=== PATIENT | female | born 1975 | race Caucasian/White ===

== ENCOUNTER 2017-01-06 00:09 | Emergency (ER) | payer SELFPAY ==
--- NOTE | 2017-01-06 02:34 | ED CLINICAL REPORT ---
Clinical Report - Physicians/Mid Levels [facility] [address] [place] [address] 01/06/2017 0:09 Patient: ELIZABETH MCKEON *This is a preliminary document and is subject to change Time Seen: 00:23; initial patient contact. PAST HISTORY Epicondylitis. Peritonsillar Abscess. Lymphadenitis. Paresthesia. Ganglion Cyst. Ovarian Cyst. Periodontitis. Dental Abscess. SURGERIES: Adenoidectomy. Hysterectomy. SOCIAL HISTORY Current every day smoker. No alcohol use or drug use. [address].
--- NOTE | 2017-01-06 02:34 | ED NURSING NOTES ---
Clinical Report - Nurses [facility] [address] [place] [address] 01/06/2017 0:09 Patient: ELIZABETH MCKEON TRIAGE Triage time 00:21 Jan 06 2017. Acuity: LEVEL 4. Chief Complaint: LEFT LOWER TOOTHACHE and SWELLING OF JAW / FACE. SEPSIS SCREEN: Sepsis Screen: negative. Negative (no infection suspected/documented). MACKENZIE COMA SCORE: [place] Coma Scale: 15- eyes open spontaneously (4); best verbal response- oriented x 4 (5); best motor response- obeys commands (6). --00:25 Shilpi Lopez 00:21 01/06/17. BP: 114/74. HR: 90. RR: 20. O2 saturation: 98% on room air. Temp: 98 F (oral). Pain level now: 08/21. --00:25 Shilpi Lopez. Weight: 58 kg stated. Height/Length: 61 inches Per Patient. BMI: 24.2. --00:22 Shilpi Lopez. Medications None. --00:24 Shilpi Lopez. Allergies Codeine. --00:24 Shilpi Lopez. Medication/allergy information source: the patient. --00:25 Shilpi Lopez. History Arrived by private vehicle. Historian: patient. Accompanied by family. Primary physician ([facility]). This started yesterday. ( Patient reports a broken tooth that has been hurting since yesterday. She states she was here before and had an issue with her artery in her neck and she states she believes the two are related. She reports some swelling of the face. She reports blurred vision as well. She states she has been seen here and [place] and nothing has been done for her.). She has no dental appointment scheduled. PAST MEDICAL HX: Dental caries. Immunizations: up-to-date. Last normal menstrual period- 22 years ago. SOCIAL HX: Light tobacco smoker (cigarette)- less than 1/2 a pack per day. No alcohol use or drug use. No infectious disease exposure. ABUSE ASSESSMENT: No report of abuse. FALL RISK ASSESSMENT: Fall risk assessment completed. No fall risk identified. NUTRITIONAL RISK ASSESSMENT: The nutritional risk assessment revealed no deficiencies. FUNCTIONAL ASSESSMENT: Functional assessment: no impairments noted. LEARNING NEEDS ASSESSMENT: The learning needs assessment revealed no barriers. SKIN INTEGRITY ASSESSMENT: Skin integrity risk assessment completed. No skin integrity risk identified. --00:25 Shilpi Lopez. PROBLEMS: Epicondylitis. Peritonsillar Abscess. Lymphadenitis. Paresthesia. Ganglion Cyst. Ovarian Cyst. Periodontitis. Dental Abscess. --00:25 Shilpi Lopez. ADDITIONAL SURGERIES: Adenoidectomy. Hysterectomy. --00: Shilpi Lopez. Interventions ID band on patient. To treatment room. --00: Shilpi Lopez. PHYSICAL ASSESSMENT Ambulatory to room. GENERAL / NEURO / PSYCH: Alert. Oriented X 4. Appears in pain. HEENT: Extensive dental decay. RESPIRATORY: Respirations not labored. SKIN: Skin is warm and dry. --00: Shilpi Lopez. NURSING PROGRESS NOTES 00:01/06/17. Cold pack applied. Reassurance given to the patient. Two patient identifiers checked. Call light placed in reach. Side rails up x 1. Bed placed in lowest position. Brakes of bed on. Patient ready for evaluation- chart flagged. --00: Shilpi Lopez 01:45 01/06/2017 Site #1 started via IV in the right antecubital space with an 20g angiocath, with aseptic technique and good blood return; one attempt. Blood drawn: rainbow set. Labeled in the presence of the patient and held. Saline lock flushed with 5 mL saline. --01:54 Indira De Jesus RTristonNTriston 01:50 01/06/2017 SOLU-MEDROL (MethylPREDNISolone Sodium Succ) IVP 125 mg given over 1 minute(s) via site #1. Allergies verified and confirmed 5 rights. IV patency established. IV site checked: no pain, redness, or swelling. IV flushed thoroughly pre- and post-medication administration. IVP given by RN. --01:55 Indira De Jesus R.N. The patient is resting quietly. --01:58 Shilpi Lopez 01:58 01/06/17. BP: 116/69. HR: 73. RR: 20. O2 saturation: 99% on room air. Pain level now: 08/21. --01:58 Shilpi Lopez ( Patient asked for urine sample and informed of plan of care. Patient states she does not want to wait for hours while the doctor takes care of other patients. Patient advised to stay for treatment and that provider would be back in the room as soon as he was able. Patient declined to stay. Patient asked for her Ultrasound and lab reports from her visit for her "swollen artery". Patient provided with Ultrasound reports.). --02:32 Shilpi Lopez. DISPOSITION / DISCHARGE The patient left the Emergency Department without completion of treatment; patient was accompanied by a helicopter crew chief. The patient appears to be alert, oriented x4, coherent and in no acute distress. The patient notified the ED staff prior to leaving the department and stated is leaving the ED due to personal reasons and the long waiting time. Notified the ED physician of patient departure. Prior to leaving the ED, she was advised to stay for completion of treatment and return if needed. She was informed of the risks of leaving and verbalized understanding of these risks. Patient signed form prior to leaving. She left the Emergency Department ambulatory and via private vehicle. --02:33 Shilpi Lopez 02:32 01/06/17. BP: 127/77. HR: 72. RR: 18. O2 saturation: 95% on room air. Temp: 97.7 F (oral). Pain level now: 08/21. --02:33 Shilpi Lopez FALL RISK ASSESSMENT: Fall risk assessment completed. No fall risk identified. --02:33 Shilpi Lopez 02:28 01/06/2017 Site #1 removed upon discharge. Catheter intact. Bandaid applied. --02:33 Shilpi Lopez. Locked/Released at 01/07/2017 23:37 by Shilpi Lopez,
--- NOTE | 2017-01-06 02:34 | ED CLINICAL REPORT ---
Clinical Report - Physicians/Mid Levels [facility] [address] [place] [place] [address] 01/06/2017 0:09 Patient: ELIZABETH MCKEON *This is a preliminary document and is subject to change Time Seen: 00:23; initial patient contact. PAST HISTORY Epicondylitis. Peritonsillar Abscess. Lymphadenitis. Paresthesia. Ganglion Cyst. Ovarian Cyst. Periodontitis. Dental Abscess. SURGERIES: Adenoidectomy. Hysterectomy. SOCIAL HISTORY Current every day smoker. No alcohol use or drug use. [address]
--- NOTE | 2017-01-06 02:34 | ED NURSING NOTES ---
Clinical Report - Nurses [facility] [address] [place] [address] 01/06/2017 0:09 Patient: ELIZABETH MCKEON TRIAGE Triage time 00:21 Jan 06 2017. Acuity: LEVEL 4. Chief Complaint: LEFT LOWER TOOTHACHE and SWELLING OF JAW / FACE. SEPSIS SCREEN: Sepsis Screen: negative. Negative (no infection suspected/documented). MACKENZIE COMA SCORE: [place] Coma Scale: 15- eyes open spontaneously (4); best verbal response- oriented x 4 (5); best motor response- obeys commands (6). --00:25 Shilpi Lopez 00:21 01/06/17. BP: 114/74. HR: 90. RR: 20. O2 saturation: 98% on room air. Temp: 98 F (oral). Pain level now: 08/21. --00:25 Shilpi Lopez. Weight: 58 kg stated. Height/Length: 61 inches Per Patient. BMI: 24.2. --00:22 Shilpi Lopez. Medications None. --00:24 Shilpi Lopez. Allergies Codeine. --00:24 Shilpi Lopez. Medication/allergy information source: the patient. --00:25 Shilpi Lopez. History Arrived by private vehicle. Historian: patient. Accompanied by family. Primary physician ([facility]). This started yesterday. ( Patient reports a broken tooth that has been hurting since yesterday. She states she was here before and had an issue with her artery in her neck and she states she believes the two are related. She reports some swelling of the face. She reports blurred vision as well. She states she has been seen here and [place] and nothing has been done for her.). She has no dental appointment scheduled. PAST MEDICAL HX: Dental caries. Immunizations: up-to-date. Last normal menstrual period- 22 years ago. SOCIAL HX: Light tobacco smoker (cigarette)- less than 1/2 a pack per day. No alcohol use or drug use. No infectious disease exposure. ABUSE ASSESSMENT: No report of abuse. FALL RISK ASSESSMENT: Fall risk assessment completed. No fall risk identified. NUTRITIONAL RISK ASSESSMENT: The nutritional risk assessment revealed no deficiencies. FUNCTIONAL ASSESSMENT: Functional assessment: no impairments noted. LEARNING NEEDS ASSESSMENT: The learning needs assessment revealed no barriers. SKIN INTEGRITY ASSESSMENT: Skin integrity risk assessment completed. No skin integrity risk identified. --00:25 Shilpi Lopez. PROBLEMS: Epicondylitis. Peritonsillar Abscess. Lymphadenitis. Paresthesia. Ganglion Cyst. Ovarian Cyst. Periodontitis. Dental Abscess. --00:25 Shilpi Lopez. ADDITIONAL SURGERIES: Adenoidectomy. Hysterectomy. --00: Shilpi Lopez. Interventions ID band on patient. To treatment room. --00: Shilpi Lopez. PHYSICAL ASSESSMENT Ambulatory to room. GENERAL / NEURO / PSYCH: Alert. Oriented X 4. Appears in pain. HEENT: Extensive dental decay. RESPIRATORY: Respirations not labored. SKIN: Skin is warm and dry. --00: Shilpi Lopez. NURSING PROGRESS NOTES 00:01/06/17. Cold pack applied. Reassurance given to the patient. Two patient identifiers checked. Call light placed in reach. Side rails up x 1. Bed placed in lowest position. Brakes of bed on. Patient ready for evaluation- chart flagged. --00: Shilpi Lopez 01:45 01/06/2017 Site #1 started via IV in the right antecubital space with an 20g angiocath, with aseptic technique and good blood return; one attempt. Blood drawn: rainbow set. Labeled in the presence of the patient and held. Saline lock flushed with 5 mL saline. --01:54 Indira De Jesus RTristonNTriston 01:50 01/06/2017 SOLU-MEDROL (MethylPREDNISolone Sodium Succ) IVP 125 mg given over 1 minute(s) via site #1. Allergies verified and confirmed 5 rights. IV patency established. IV site checked: no pain, redness, or swelling. IV flushed thoroughly pre- and post-medication administration. IVP given by RN. --01:55 Indira De Jesus R.N. The patient is resting quietly. --01:58 Shilpi Lopez 01:58 01/06/17. BP: 116/69. HR: 73. RR: 20. O2 saturation: 99% on room air. Pain level now: 08/21. --01:58 Shilpi Lopez ( Patient asked for urine sample and informed of plan of care. Patient states she does not want to wait for hours while the doctor takes care of other patients. Patient advised to stay for treatment and that provider would be back in the room as soon as he was able. Patient declined to stay. Patient asked for her Ultrasound and lab reports from her visit for her "swollen artery". Patient provided with Ultrasound reports.). --02:32 Shilpi Lopez. DISPOSITION / DISCHARGE The patient left the Emergency Department without completion of treatment; patient was accompanied by a traffic police officer. The patient appears to be alert, oriented x4, coherent and in no acute distress. The patient notified the ED staff prior to leaving the department and stated is leaving the ED due to personal reasons and the long waiting time. Notified the ED physician of patient departure. Prior to leaving the ED, she was advised to stay for completion of treatment and return if needed. She was informed of the risks of leaving and verbalized understanding of these risks. Patient signed form prior to leaving. She left the Emergency Department ambulatory and via private vehicle. --02:33 Shilpi Lopez 02:32 01/06/17. BP: 127/77. HR: 72. RR: 18. O2 saturation: 95% on room air. Temp: 97.7 F (oral). Pain level now: 08/21. --02:33 Shilpi Lopez FALL RISK ASSESSMENT: Fall risk assessment completed. No fall risk identified. --02:33 Shilpi Lopez 02:28 01/06/2017 Site #1 removed upon discharge. Catheter intact. Bandaid applied. --02:33 Shilpi Lopez. Locked/Released at 01/07/2017 23:37 by Shilpi Lopez,
--- NOTE | 2017-01-06 02:34 | ED ORDER SUMMARY ---
..... Patient: ELIZABETH MCKEON OrderSheet [facility] VisitID: [id number] [place] [address] 41y, F Registration Date/Time: 01/06/2017 ORDER SHEET Weight: 58.0 kg (stated) Allergies: Codeine GENERAL ORDERS: CBC w Diff Urgent (02:09 01/06/2017 Amaya Ly) (Ack 2:12 IJurca ER Tech1) (Cancelled: Patient Refusal2:30 HSoule) CMP Urgent (02:09 01/06/2017 Amaya Ly) (Ack 2:12 IJurca ER Tech1) (Cancelled: Patient Refusal2:30 HSoule) Urine Drug Screen Urgent (02:01/06/2017 Amaya Ly) (Ack 2:12 IJurca ER Tech1) (Cancelled: Patient Refusal2:30 HSoule) UA-Culture if indicated Urgent (02:01/06/2017 Amaya Ly) (Ack 2:12 IJurca ER Tech1) (Cancelled: Patient Refusal2:30 HSoule) MEDICATION ORDERS: IV FLUIDS: Solu-MEDROL IV 125 mg (NOW) (01:39 01/06/2017 Amaya Ly) (1:55 EInderbitzen R.N.) IV NS : initial bolus none -, then 1000 mL/hr for X1 (NOW) (02:09 01/06/2017 Amaya Ly) (Ack 2:11 HSoule) (Cancelled: Patient Refusal2:30 HSoule) ORDER SHEET NOTES: This document has not been locked and should not be saved in the medical record.
--- NOTE | 2017-01-06 02:34 | ED ORDER SUMMARY ---
..... Patient: ELIZABETH MCKEON OrderSheet [facility] VisitID: [id number] [place] [address] 41y, F Registration Date/Time: 01/06/2017 ORDER SHEET Weight: 58.0 kg (stated) Allergies: Codeine GENERAL ORDERS: CBC w Diff Urgent (02:09 01/06/2017 Amaya Ly) (Ack 2:12 IJurca ER Tech1) (Cancelled: Patient Refusal2:30 HSoule) CMP Urgent (02:09 01/06/2017 Amaya Ly) (Ack 2:12 IJurca ER Tech1) (Cancelled: Patient Refusal2:30 HSoule) Urine Drug Screen Urgent (02:01/06/2017 Amaya Ly) (Ack 2:12 IJurca ER Tech1) (Cancelled: Patient Refusal2:30 HSoule) UA-Culture if indicated Urgent (02:01/06/2017 Amaya Ly) (Ack 2:12 IJurca ER Tech1) (Cancelled: Patient Refusal2:30 HSoule) MEDICATION ORDERS: IV FLUIDS: Solu-MEDROL IV 125 mg (NOW) (01:39 01/06/2017 Amaya Ly) (1:55 EInderbitzen R.N.) IV NS : initial bolus none -, then 1000 mL/hr for X1 (NOW) (02:09 01/06/2017 Amaya Ly) (Ack 2:11 HSoule) (Cancelled: Patient Refusal2:30 HSoule) ORDER SHEET NOTES: This document has not been locked and should not be saved in the medical record.
--- NOTE | 2017-01-07 23:37 | ED MAR SUMMARY ---
..... Medication Administration Record [facility] [address] [place] [address] Patient: ELIZABETH MCKEON Visit ID: [id number] 41y, F Weight: 58.0 kg Height/Length: 61 in BMI: 24.2 ALLERGIES: Codeine Given 01:50 01/06/2017 Indira De Jesus R.N. Medication Administered: SOLU-MEDROL [IVP] (METHYLPREDNISOLONE SODIUM SUCC), Dose: 125 mg IVP over 1 minute(s), Site: #1 right AC. Medication Ordered: Solu-MEDROL IV 125 mg (NOW).
--- NOTE | 2017-01-07 23:37 | ED MAR SUMMARY ---
..... Medication Administration Record [facility] [address] [place] [address] Patient: ELIZABETH MCKEON Visit ID: [id number] 41y, F Weight: 58.0 kg Height/Length: 61 in BMI: 24.2 ALLERGIES: Codeine Given 01:50 01/06/2017 Indira De Jesus R.N. Medication Administered: SOLU-MEDROL [IVP] (METHYLPREDNISOLONE SODIUM SUCC), Dose: 125 mg IVP over 1 minute(s), Site: #1 right AC. Medication Ordered: Solu-MEDROL IV 125 mg (NOW).
--- NOTE | 2017-01-07 23:37 | ED MED RECONCILIATION SUMMARY ---
Patient: ELIZABETH MCKEON Medication Reconciliation Report [facility] VisitID: [id number] [address] [place] [address] 41y, F Registration Date/Time: 01/06/2017 Weight: 58.0 kg Height/Length: 61 in. BMI: 24.2 ALLERGIES: Codeine The patient's Home Medications are listed below: NONE. The source(s) of the original Home Medication information: patient The following Medications were given to the patient in the Emergency Department: SOLU-MEDROL [IVP] IVP 125 mg, administered: 01/06/2017 1:50:00 AM The following Medications were prescribed to the patient: None.
--- NOTE | 2017-01-07 23:37 | ED MED RECONCILIATION SUMMARY ---
Patient: ELIZABETH MCKEON Medication Reconciliation Report [facility] VisitID: [id number] [address] [place] [place] [address] 41y, F Registration Date/Time: 01/06/2017 Weight: 58.0 kg Height/Length: 61 in. BMI: 24.2 ALLERGIES: Codeine The patient's Home Medications are listed below: NONE. The source(s) of the original Home Medication information: patient The following Medications were given to the patient in the Emergency Department: SOLU-MEDROL [IVP] IVP 125 mg, administered: 01/06/2017 1:50:00 AM The following Medications were prescribed to the patient: None.
== END 2017-01-06 02:20 | disposition home or self-care (01) ==
LOC: ED SRH 00:09
DX: J02.9 Acute pharyngitis, unspecified (principal); F17.210 Nicotine dependence, cigarettes, uncomplicated

== ENCOUNTER 2017-01-07 17:47 | Emergency (ER) | payer SELFPAY ==
--- NOTE | 2017-01-07 19:32 | DIAGNOSTIC IMAGING REPORT ---
PROCEDURE: CT HEAD WITHOUT CONTRAST INDICATION: HEADACHE TECHNIQUE: Axial CT images were acquired through the head. Coronal and sagittal reformations were created. COMPARISON: Multiple prior studies including the most recent from 01/21/2016. FINDINGS: No intracranial hemorrhage or extraaxial fluid collections. Ventricles are normal in size, shape and position. There is no mass, mass effect or midline shift. The mathur-white matter differentiation is normal. There is no edema. The calvarium is intact. The paranasal sinuses and mastoid air cells are normally aerated. The extracranial soft tissues and orbits are normal. IMPRESSION: 1. No CT evidence of acute intracranial process. 2. Findings discussed with Noreen Arcos at [address] scans at this facility use dose modulation, iterative reconstruction, and/or weight-based dosing when appropriate to reduce radiation dose to as low as reasonably achievable.
--- NOTE | 2017-01-07 19:36 | ED NURSING NOTES ---
Clinical Report - Nurses [facility] [address] [place] [address] 01/07/2017 17:48 Patient: ELIZABETH MCKEON TRIAGE Triage time 18:19. Chief Complaint: HEADACHE. --18:22 Rahda Gagnon R.N. 18:18 01/07/17. BP: 126/89 taken while sitting. HR: 83. RR: 20. O2 saturation: 100%. Temp: 97.5 F. Pain level now: 08/21. --18:22 Radha Gagnon R.N. Acuity: LEVEL 3. Alert. No acute distress. MACKENZIE COMA SCORE: [place] Coma Scale: 15- eyes open spontaneously (4); best verbal response- oriented x 4 (5); best motor response- obeys commands (6). --18:26 Aretha Sawant R.N. Chief Complaint: (Seen here on Sunday for the same, left before treatment finished.). --18:27 Aretha Sawant R.N. Weight: 58 kg stated. Height/Length: 63 inches Per Patient. BMI: 22.7. --18:24 Aretha Sawant R.N. Medications None. --18:21 Radha Gagnon R.N. Allergies Codeine. --18:21 Radha Gagnon R.N. History Arrived by private vehicle. Historian: patient and family. Accompanied by friend. No primary care physician. This started 1 weeks ago. Patient was last known well (Upon waking). Treatment RESIDENTIAL PROPERTY CONSULTANT: Took ibuprofen. --18:22 Radha Gagnon R.N. The patient has had nausea and sinus pain. No vomiting, weakness or numbness. PAST MEDICAL HX: Immunizations: status is unknown. The patient has had a hysterectomy. SOCIAL HX: Light tobacco smoker (cigarette)- less than 1/2 a pack per day. No alcohol use or drug use. FALL RISK ASSESSMENT: Fall risk assessment completed. No fall risk identified. NUTRITIONAL RISK ASSESSMENT: The nutritional risk assessment revealed no deficiencies. LEARNING NEEDS ASSESSMENT: The learning needs assessment revealed no barriers. SKIN INTEGRITY ASSESSMENT: Skin integrity risk assessment completed. No skin integrity risk identified. --18:26 Aretha Sawant R.N. PROBLEMS: Epicondylitis. Abnormal Test. Peritonsillar Abscess. Lymphadenitis. Paresthesia. Ganglion Cyst. Headache. Contusion. Tetanus Status. Bronchitis. COPD - Chronic Obstructive Pulmonary Disease. UTI - Urinary Tract Infection. "colon lining was too thick". Abdominal Pain. Ovarian Cyst. Periodontitis. Dental Abscess. Dental Caries. Immunizations. --18:24 Aretha Sawant R.N. Trench Mouth [RuleOut]. --18:24 Aretha Sawant R.N. ADDITIONAL SURGERIES: Adenoidectomy. Hysterectomy. --18:24 Aretha Sawant R.N. Interventions ID band on patient. To room. --18: Aretha Sawant R.N. PHYSICAL ASSESSMENT To room via wheelchair. Patient gowned. GENERAL / NEURO / PSYCH: Alert. Oriented X 4. Appears in pain and anxious. Speech within normal limits. HEENT: No facial asymmetry noted. RESPIRATORY: Respirations not labored. CVS: Capillary refill less than 2 seconds. GI / : Abdomen nontender. SKIN: Skin is warm and dry. --18:26 Aretha Sawant R.N. NURSING PROGRESS NOTES Patient gowned. Lights dimmed. Two patient identifiers checked. Call light placed in reach. Side rails up x 2. Bed placed in lowest position. Brakes of bed on. Patient ready for evaluation. --18:26 Aretha Sawant R.N. 19:44 01/07/2017 Oxycodone-APAP (Oxycodone-Acetaminophen) PO 5/325 mg Tablets 1 tab given. Allergies verified, confirmed 5 rights and sedative warning given to the patient. --19:49 Shilpi Lopez. DISPOSITION / DISCHARGE 19:49 01/07/17. BP: 120/78. HR: 88. RR: 20. O2 saturation: 100% on room air. Temp: 98 F (oral). Pain level now: 08/21. --19:51 Shilpi Lopez 19:51 01/07/17. The goals identified in the patient's plan of care were met. FALL RISK ASSESSMENT: Fall risk assessment completed. No fall risk identified. --23:02 Shilpi Lopez 19:51 01/07/17. Condition at departure: stable. No learning barriers present. Discharge instructions provided and reviewed with the patient. Reviewed warnings (do not drive while on seditive medication). Reviewed medication(s) side effects, precautions, dosing and course information. Prescription(s) given to the patient. Patient verbalized understanding. Written instructions provided in Guamanian. ( Follow up with PCP on Sunday.). The patient was discharged by the physician clothing sales assistant. She was discharged home and accompanied by early childhood worker. She left the Emergency Department ambulatory and via private vehicle. Copy Preparer driving. --19:51 Shilpi Lopez. Locked/Released at 01/07/2017 23:26 by Shilpi Lopez,
--- NOTE | 2017-01-07 19:36 | ED NURSING NOTES ---
Clinical Report - Nurses [facility] [address] [place] [address] 01/07/2017 17:48 Patient: ELIZABETH MCKEON TRIAGE Triage time 18:19. Chief Complaint: HEADACHE. --18:22 Radha Gagnon R.N. 18:18 01/07/17. BP: 126/89 taken while sitting. HR: 83. RR: 20. O2 saturation: 100%. Temp: 97.5 F. Pain level now: 08/21. --18:22 Radha Gagnon R.N. Acuity: LEVEL 3. Alert. No acute distress. MACKENZIE COMA SCORE: [place] Coma Scale: 15- eyes open spontaneously (4); best verbal response- oriented x 4 (5); best motor response- obeys commands (6). --18:26 Aretha Sawant R.N. Chief Complaint: (Seen here on Sunday for the same, left before treatment finished.). --18:27 Aretha Sawant R.N. Weight: 58 kg stated. Height/Length: 63 inches Per Patient. BMI: 22.7. --18:24 Aretha Sawant R.N. Medications None. --18:21 Radha Gagnon R.N. Allergies Codeine. --18:21 Radha Gagnon R.N. History Arrived by private vehicle. Historian: patient and family. Accompanied by friend. No primary care physician. This started 1 weeks ago. Patient was last known well (Upon waking). 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 --18:22 Radha Gagnon R.N. The patient has had nausea and sinus pain. No vomiting, weakness or numbness. PAST MEDICAL HX: Immunizations: status is unknown. The patient has had a hysterectomy. SOCIAL HX: Light tobacco smoker (cigarette)- less than 1/2 a pack per day. No alcohol use or drug use. FALL RISK ASSESSMENT: Fall risk assessment completed. No fall risk identified. NUTRITIONAL RISK ASSESSMENT: The nutritional risk assessment revealed no deficiencies. LEARNING NEEDS ASSESSMENT: The learning needs assessment revealed no barriers. SKIN INTEGRITY ASSESSMENT: Skin integrity risk assessment completed. No skin integrity risk identified. --18:26 Aretha Sawant R.N. PROBLEMS: Epicondylitis. Abnormal Test. Peritonsillar Abscess. Lymphadenitis. Paresthesia. Ganglion Cyst. Headache. Contusion. Tetanus Status. Bronchitis. COPD - Chronic Obstructive Pulmonary Disease. UTI - Urinary Tract Infection. "colon lining was too thick". Abdominal Pain. Ovarian Cyst. Periodontitis. Dental Abscess. Dental Caries. Immunizations. --18:24 Aretha Sawant R.N. Trench Mouth [RuleOut]. --18:24 Aretha Sawant R.N. ADDITIONAL SURGERIES: Adenoidectomy. Hysterectomy. --18:24 Aretha Sawant R.N. Interventions ID band on patient. To room. --18: Aretha Sawant R.N. PHYSICAL ASSESSMENT To room via wheelchair. Patient gowned. GENERAL / NEURO / PSYCH: Alert. Oriented X 4. Appears in pain and anxious. Speech within normal limits. HEENT: No facial asymmetry noted. RESPIRATORY: Respirations not labored. CVS: Capillary refill less than 2 seconds. GI / : Abdomen nontender. SKIN: Skin is warm and dry. --18:26 Aretha Sawant R.N. NURSING PROGRESS NOTES Patient gowned. Lights dimmed. Two patient identifiers checked. Call light placed in reach. Side rails up x 2. Bed placed in lowest position. Brakes of bed on. Patient ready for evaluation. --18:26 Aretha Sawant R.N. 19:44 01/07/2017 Oxycodone-APAP (Oxycodone-Acetaminophen) PO 5/325 mg Tablets 1 tab given. Allergies verified, confirmed 5 rights and sedative warning given to the patient. --19:49 Shilpi Lopez. DISPOSITION / DISCHARGE 19:49 01/07/17. BP: 120/78. HR: 88. RR: 20. O2 saturation: 100% on room air. Temp: 98 F (oral). Pain level now: 08/21. --19:51 Shilpi Lopez 19:51 01/07/17. The goals identified in the patient's plan of care were met. FALL RISK ASSESSMENT: Fall risk assessment completed. No fall risk identified. --23:02 Shilpi Lopez 19:51 01/07/17. Condition at departure: stable. No learning barriers present. Discharge instructions provided and reviewed with the patient. Reviewed warnings (do not drive while on seditive medication). Reviewed medication(s) side effects, precautions, dosing and course information. Prescription(s) given to the patient. Patient verbalized understanding. Written instructions provided in Micronesian. ( Follow up with PCP on Sunday.). The patient was discharged by the physician assistant professor of theater. She was discharged home and accompanied by can dragger. She left the Emergency Department ambulatory and via private vehicle. It Service Technician driving. --19:51 Shilpi Lopez. Locked/Released at 01/07/2017 23:26 by Shilpi Lopez,
--- NOTE | 2017-01-07 19:36 | ED ORDER SUMMARY ---
..... Patient: ELIZABETH MCKEON OrderSheet [facility] VisitID: [id number] [address] [place] [address] 41y, F Registration Date/Time: 01/07/2017 ORDER SHEET Weight: 58.0 kg (stated) Allergies: Codeine GENERAL ORDERS: CT Head wo Cont (left facial pain with trigeminal pain and can't elevate her left eyebrow.) Urgent (19:17 01/07/2017 Roxy GALLARDO) (19:28 RFay) ESR Urgent (19:20 01/07/2017 Roxy GALLARDO) (Ack 19:29 CHategekimana) MEDICATION ORDERS: Oxycodone-APAP PO 5/325 mg (HIGH ALERT MEDICATION, NOW) (19:16 01/07/2017 Roxy GALLARDO) (Ack 19:38 HSoule) (19:49 HSoule) IV FLUIDS: ORDER SHEET NOTES: [Electronically signed by Shilpi Lopez (23:26 01/07/2017)] [Electronically signed by Noreen Arcos PA-C (00:34 01/08/2017)] [Electronically locked/signed by Shilpi Lopez (:01/07/2017)]
--- NOTE | 2017-01-07 19:36 | ED CLINICAL REPORT ---
Clinical Report - Physicians/Mid Levels [facility] [address] [place] [address] 01/07/2017 17:48 Patient: ELIZABETH MCKEON Time Seen: 19:21; initial patient contact. Arrived- By private vehicle. Historian- patient. HISTORY OF PRESENT ILLNESS Chief Complaint: FACIAL PAIN. Is still present and worsening. This started 7 days ago. Located in the left hemicranial, left parietal, left temporal and left maxillary region and left mandibular region and region of the left ear. The patient has had numbness. She has had new onset of weakness of the left face (mild). No preceding symptoms or blurred vision. Similar symptoms previously: None. Recent medical care: The patient was seen recently at another facility in a clinic. REVIEW OF SYSTEMS The patient has had fever. All systems otherwise negative, except as recorded above. PAST HISTORY See nurses notes. No history of head injury. Problems: Epicondylitis. Abnormal Test. Peritonsillar Abscess. Lymphadenitis. Paresthesia. Ganglion Cyst. Headache. Contusion. Tetanus Status. "colon lining was too thick". Abdominal Pain. Ovarian Cyst. Periodontitis. Dental Abscess. Dental Caries. Immunizations. Medications: None. Allergies: Codeine. SOCIAL HISTORY Smoker- current status unknown (cigarette). ADDITIONAL NOTES The nursing notes have been reviewed with agreement regarding the chief complaint, HPI, ROS, PMH and patient medications and allergies. PHYSICAL EXAM Vital Signs: 01/07/2017 18:18 BP: 126/89. HR: 83. RR: 20. O2 saturation: 100%. Temp: 97.5 F. Pain level now: 10/10. Have been reviewed. Appearance: Alert. Anxious. Appears to be in pain. Patient in moderate distress. Head: Tenderness present to percussion/palpation of the sinuses: moderate left frontal tenderness, maxillary tenderness. No temporal artery tenderness. Eyes: Moderate photophobia present. Pupillary exam: Right pupil 3mm, round and constricted. Left pupil: 3mm, round, constricted and reactive to light directly and consensually and with accommodation. Mild dysconjugate gaze (with slight left eye drift). No conjunctival findings or nystagmus. (slight lag of the left eye with conjugate gaze). (facial pain with light touch to the forehead, scalp, ear, and cheek left face). No abnormal funduscopic findings. ENT: Ears normal. Nose normal. Pharynx normal. Neck: Normal inspection. Neck supple. CVS: Normal heart rate and rhythm. Heart sounds normal. Respiratory: No respiratory distress. Breath sounds normal. Neuro: Oriented X 3. Alert. Cranial nerve deficit present, as evidenced by left facial weakness and left facial numbness (unable to elevate left eyebrow). Reflexes normal. PROGRESS AND PROCEDURES Course of Care: pt with trigeminal neuralgia, reacted poorly to prior oral steroids, negative head CT. Patient is stable. Physical exam findings are unchanged. Symptoms better. CLINICAL IMPRESSION Trigeminal neuralgia. INSTRUCTIONS No strenuous activity. Rest. Do not work for four days until better. Do not smoke. No alcohol. (Your cat scan was negative. however you should follow up with your provider this week, and possibly see a neurologist for further evaluation). Warnings: Further evaluation is necessary in order to conduct further tests. It is very important to follow up with a physician. CONTROLLED SUBSTANCE WARNINGS. Prescription Medications: Oxycodone/APAP 5 mg/325 mg: take 1-2 tablets orally every 6 hours as needed for pain. Dispense twelve (12). No refill. Gabapentin 300 mg capsules: take 1 orally every 8 hours. Dispense thirty (30). No refill. Follow-up: Follow up with your doctor Sunday if not well. Follow up with a neurologist- as recommended by your primary care physician- if not better. Reason for referral: trigeminal neuralgia. Understanding of the discharge instructions verbalized by patient and family. (Electronically signed by Noreen Arcos PA-C 01/08/2017 0:34)
--- NOTE | 2017-01-07 19:36 | ED ORDER SUMMARY ---
..... Patient: ELIZABETH MCKEON OrderSheet [facility] VisitID: [id number] [address] [place] [address] 41y, F Registration Date/Time: 01/07/2017 ORDER SHEET Weight: 58.0 kg (stated) Allergies: Codeine GENERAL ORDERS: CT Head wo Cont (left facial pain with trigeminal pain and can't elevate her left eyebrow.) Urgent (19:17 01/07/2017 Roxy GALLARDO) (19:28 RFay) ESR Urgent (19:20 01/07/2017 Roxy GALLARDO) (Ack 19:29 CHategekimana) MEDICATION ORDERS: Oxycodone-APAP PO 5/325 mg (HIGH ALERT MEDICATION, NOW) (19:16 01/07/2017 Roxy GALLARDO) (Ack 19:38 HSoule) (19:49 HSoule) IV FLUIDS: ORDER SHEET NOTES: [Electronically signed by Shilpi Lopez (23:26 01/07/2017)] [Electronically signed by Noreen Arcos PA-C (00:34 01/08/2017)] [Electronically locked/signed by Shilpi Lopez (:01/07/2017)]
--- NOTE | 2017-01-08 00:34 | ED MED RECONCILIATION SUMMARY ---
Patient: ELIZABETH MCKEON Medication Reconciliation Report [facility] VisitID: [id number] [address] [place] [address] 41y, F Registration Date/Time: 01/07/2017 Weight: 58.0 kg Height/Length: 63 in. BMI: 22.7 ALLERGIES: Codeine The patient's Home Medications are listed below: NONE. The source(s) of the original Home Medication information: Not obtained. The following Medications were given to the patient in the Emergency Department: Oxycodone-APAP [PO] PO 1 tab, administered: 01/07/2017 7:44:00 PM The following Medications were prescribed to the patient: Oxycodone/APAP 5 mg/325 mg: take 1-2 tablets orally every 6 hours as needed for pain. Dispense twelve (12). No refill. -- Noreen Arcos PA-C Gabapentin 300 mg capsules: take 1 orally every 8 hours. Dispense thirty (30). No refill. -- Noreen Arcos PA-C
--- NOTE | 2017-01-08 00:34 | ED DISCHARGE INSTRUCTIONS ---
Patient: ELIZABETH MCKEON General Instructions [facility] VisitID: [id number] [address] [place] [address] 41y, F Registration Date/Time: 01/07/2017 Trigeminal neuralgia. INSTRUCTIONS No strenuous activity. Rest. Do not work for four days until better. Do not smoke. No alcohol. (Your cat scan was negative. however you should follow up with your provider this week, and possibly see a neurologist for further evaluation). Warnings: Further evaluation is necessary in order to conduct further tests. It is very important to follow up with a physician. CONTROLLED SUBSTANCE WARNINGS. Prescription Medications: Oxycodone/APAP 5 mg/325 mg: take 1-2 tablets orally every 6 hours as needed for pain. Dispense twelve (12). No refill. Gabapentin 300 mg capsules: take 1 orally every 8 hours. Dispense thirty (30). No refill. Follow-up: Follow up with your doctor Sunday if not well. Follow up with a neurologist- as recommended by your primary care physician- if not better. Reason for referral: trigeminal neuralgia. Understanding of the discharge instructions verbalized by patient and family. No strenuous activity. Rest. Do not work for four days until better. (Electronically signed by Noreen Arcos PA-C 01/08/2017 0:34)
--- NOTE | 2017-01-08 00:34 | ED MAR SUMMARY ---
..... Medication Administration Record [facility] [address] [place] [address] Patient: ELIZABETH MCKEON Visit ID: [id number] 41y, F Weight: 58.0 kg Height/Length: 63 in BMI: 22.7 ALLERGIES: Codeine Given 19:44 01/07/2017 Shilpi Lopez, Medication Administered: OXYCODONE-APAP [PO] (OXYCODONE-ACETAMINOPHEN), Dose: 1 tab 5/325 mg Tablets PO. Medication Ordered: Oxycodone-APAP PO 5/325 mg (HIGH ALERT MEDICATION, NOW).
--- NOTE | 2017-01-08 00:34 | ED MED RECONCILIATION SUMMARY ---
Patient: ELIZABETH MCKEON Medication Reconciliation Report [facility] VisitID: [id number] [address] [place] [address] 41y, F Registration Date/Time: 01/07/2017 Weight: 58.0 kg Height/Length: 63 in. BMI: 22.7 ALLERGIES: Codeine The patient's Home Medications are listed below: NONE. The source(s) of the original Home Medication information: Not obtained. The following Medications were given to the patient in the Emergency Department: Oxycodone-APAP [PO] PO 1 tab, administered: 01/07/2017 7:44:00 PM The following Medications were prescribed to the patient: Oxycodone/APAP 5 mg/325 mg: take 1-2 tablets orally every 6 hours as needed for pain. Dispense twelve (12). No refill. -- Noreen Arcos PA-C Gabapentin 300 mg capsules: take 1 orally every 8 hours. Dispense thirty (30). No refill. -- Noreen Arcos PA-C
--- NOTE | 2017-01-08 00:34 | ED MAR SUMMARY ---
..... Medication Administration Record [facility] [address] [place] [address] Patient: ELIZABETH MCKEON Visit ID: [id number] 41y, F Weight: 58.0 kg Height/Length: 63 in BMI: 22.7 ALLERGIES: Codeine Given 19:44 01/07/2017 Shilpi Lopez, Medication Administered: OXYCODONE-APAP [PO] (OXYCODONE-ACETAMINOPHEN), Dose: 1 tab 5/325 mg Tablets PO. Medication Ordered: Oxycodone-APAP PO 5/325 mg (HIGH ALERT MEDICATION, NOW).
--- NOTE | 2017-01-08 00:34 | ED DISCHARGE INSTRUCTIONS ---
Patient: ELIZABETH MCKEON General Instructions [facility] VisitID: [id number] [address] [place] [address] 41y, F Registration Date/Time: 01/07/2017 Trigeminal neuralgia. INSTRUCTIONS No strenuous activity. Rest. Do not work for four days until better. Do not smoke. No alcohol. (Your cat scan was negative. however you should follow up with your provider this week, and possibly see a neurologist for further evaluation). Warnings: Further evaluation is necessary in order to conduct further tests. It is very important to follow up with a physician. CONTROLLED SUBSTANCE WARNINGS. Prescription Medications: Oxycodone/APAP 5 mg/325 mg: take 1-2 tablets orally every 6 hours as needed for pain. Dispense twelve (12). No refill. Gabapentin 300 mg capsules: take 1 orally every 8 hours. Dispense thirty (30). No refill. Follow-up: Follow up with your doctor Sunday if not well. Follow up with a neurologist- as recommended by your primary care physician- if not better. Reason for referral: trigeminal neuralgia. Understanding of the discharge instructions verbalized by patient and family. No strenuous activity. Rest. Do not work for four days until better. (Electronically signed by Noreen Arcos PA-C 01/08/2017 0:34)
== END 2017-01-07 19:50 | disposition home or self-care (01) ==
LOC: ED SRH 17:47
DX: G50.0 Trigeminal neuralgia (principal); Z88.5 Allergy status to narcotic agent; Z72.0 Tobacco use

== ENCOUNTER 2017-01-09 06:32 | Emergency (ER) | payer SELFPAY ==
--- NOTE | 2017-01-09 09:22 | DIAGNOSTIC IMAGING REPORT ---
PROCEDURE: CT SINUS/FACIAL BONES W/CONT INDICATION: LEFT FACIAL PAIN TECHNIQUE: 100 ml of Isovue 300 IV with axial scans through the facial bones. Coronal and sagittal re-formations obtained. COMPARISON: None. FINDINGS: Normal oropharynx and nasopharynx. Facial soft tissues are unremarkable without evidence of inflammatory changes. Mild bilateral jugulodigastric adenopathy is unchanged. The parotid and submandibular glands are normal. Normal airway. Mild atherosclerosis of the left carotid bifurcation. Normal globes and orbits. Mild ethmoid sinus disease. Mastoids are clear. Osseous structures are unremarkable. Several teeth are missing with radiolucency around the roots of several teeth, primarily the maxillary incisors, unchanged, suggestive of periodontal disease. IMPRESSION: 1. No acute changes 2. Chronic periodontal disease 3. Results discussed with Dr. Freeman
--- NOTE | 2017-01-09 10:03 | ED NURSING NOTES ---
Clinical Report - Nurses [facility] [address] [place] [address] 01/09/2017 6:33 Patient: ELIZABETH MCKEON TRIAGE Triage time 06:42 Jan 09 2017. Acuity: LEVEL 4. Chief Complaint: SWELLING OF JAW / FACE. MACKENZIE COMA SCORE: [place] Coma Scale: 13- eyes open spontaneously (4); best verbal response- oriented x 4 (5); best motor response- withdrawal (4). --06:50 Adalberto Suarez R.N. 06:38 01/09/17. BP: 115/79. HR: 94. RR: 18. O2 saturation: 99%. Temp: 98.0 F. Pain level now 10/10. --06:50 Adalberto Suarez R.N. Acuity: LEVEL 3. --08:28 Charlie Hall R.N. Weight: 58 kg stated. Height/Length: 61 inches Per Patient. BMI: 24.2. --06:49 Adalberto Suarez R.N. Medications None. --06:44 Adalberto Suarez R.N. Oxycodone-Acetaminophen Oral. --06:45 Adalberto Suarez R.N. Gabapentin Oral. --06:45 Adalberto Suarez R.N. Allergies Codeine. --06:44 Adalberto Suarez R.N. History Arrived by private vehicle. Historian: patient. Accompanied by family. This is a recurrent problem. (three weeks ago). ( Was diagnosed with trigeminal Neuralgia on Sunday.). She has no dental appointment scheduled. She has had facial pain, ear pain and sinus pain. No fever, hoarseness or mouth sores. She has had a toothache. PAST MEDICAL HX: Immunizations: up-to-date. SOCIAL HX: Current every day light tobacco smoker (cigarette)- less than 1/2 a pack per day. No alcohol use or drug use. No infectious disease exposure. SELF HARM ASSESSMENT: A self harm assessment was performed. The patient answered "no" to the question "Have you recently felt down, depressed, or hopeless?" and "Do you have thoughts of harming or killing yourself?". FALL RISK ASSESSMENT: Fall risk assessment completed. No fall risk identified. NUTRITIONAL RISK ASSESSMENT: The nutritional risk assessment revealed no deficiencies. FUNCTIONAL ASSESSMENT: Functional assessment: no impairments noted. LEARNING NEEDS ASSESSMENT: The learning needs assessment revealed no barriers. ABUSE ASSESSMENT: Abuse assessment: (yes) The patient was asked "Do you feel safe in your home?". SKIN INTEGRITY ASSESSMENT: Skin integrity risk assessment completed. No skin integrity risk identified. --06:50 Adalberto Suarez R.N. PROBLEMS: Trigeminal Neuralgia. Epicondylitis. Abnormal Test. Peritonsillar Abscess. Lymphadenitis. Paresthesia. Ganglion Cyst. Headache. LNMP - Last Normal Menstrual Period. Contusion. Tetanus Status. Bronchitis. COPD - Chronic Obstructive Pulmonary Disease. UTI - Urinary Tract Infection. "colon lining was too thick". Abdominal Pain. Ovarian Cyst. Periodontitis. Dental Abscess. Dental Caries. Immunizations. --06:46 Adalberto Suarez R.N. Trench Mouth [RuleOut]. --06:46 Adalberto Suarez R.N. ADDITIONAL SURGERIES: Adenoidectomy. Hysterectomy. --06:46 Adalberto Suarez R.N. Interventions ID band on patient. --06:50 Adalberto Suarez R.N. PHYSICAL ASSESSMENT Ambulatory to room. ( States feels like something is stuck in throat.). GENERAL / NEURO / PSYCH: Alert. Oriented X 4. Appears in pain and anxious. HEENT: Sinus tenderness present. Facial swelling present. Pupils equal, round and reactive to light. Hoarse voice. Dental decay. Mucous membranes are pink. RESPIRATORY: Respirations not labored. CVS: Capillary refill less than 2 seconds. SKIN: Skin is warm and dry. Normal skin turgor. --06:51 Adalberto Suarez R.N. NURSING PROGRESS NOTES The initial plan of care for this patient includes an assessment with efforts to address patient positioning, appropriate ambient lighting and comfortable environmental temperature. Cold pack applied. Reassurance given. Call light placed in reach. Side rails up x 1. Bed placed in lowest position. Brakes of bed on. --06:51 Adalberto Suarez R.N. Care transferred and report received. --07:15 Charlie Hall R.N. 08:06 01/09/2017 Site #1 started via IV in the right antecubital space with an 18g angiocath, with aseptic technique and good blood return; one attempt. Blood drawn: rainbow set. Labeled in the presence of the patient and sent to the lab. Saline lock flushed with 10 mL saline. --08:16 Charlie Hall R.N. 08:16 01/09/2017 Started bag #1 1000 mL IV Fluids IV NS (Saline); at 999 mL/hr over 1 hour(s) via site #1. Allergies verified and confirmed 5 rights. IV patency established. IV site checked: no pain, redness, or swelling. IV flushed thoroughly pre- and post-medication administration. --08:16 Charlie Hall R.N. 08:16 01/09/2017 Benadryl (DiphenhydrAMINE HCl) IVP 25 mg given over 1.5 minute(s) via site #1. Allergies verified, confirmed 5 rights and sedative warning given to the patient. IV patency established. IV site checked: no pain, redness, or swelling. IV flushed thoroughly pre- and post-medication administration. IVP given by RN. --08:17 Charlie Hall R.N. 08:19 01/09/2017 Toradol IVP 30 mg given over 2 minute(s) via site #1. Allergies verified and confirmed 5 rights. IV patency established. IV site checked: no pain, redness, or swelling. IV flushed thoroughly pre- and post-medication administration. IVP given by RN. --08:19 Charlie Hall R.N. 08:20 01/09/2017 PHENERGAN (Promethazine HCl) IVP 25 mg given over 2 minute(s) via site #1. Allergies verified and confirmed 5 rights. IV patency established. IV site checked: no pain, redness, or swelling. IV flushed thoroughly pre- and post-medication administration. --08:20 Charlie Hall R.N. 08:21 01/09/17. --08:21 Charlie Hall R.N. 08:21 01/09/17. BP: 109/76. HR: 81. RR: 14. O2 saturation: 96% on room air. Pain level now 08/21. --08:21 Charlie Hall R.N. The patient is calm and resting quietly. --08:21 Charlie Hall R.N. 08:23 01/09/2017 Decadron IVP 10 mg given over 2 minute(s) via site #1. Allergies verified and confirmed 5 rights. IV patency established. IV site checked: no pain, redness, or swelling. IV flushed thoroughly pre- and post-medication administration. IVP given by RN. --08:23 Charlie Hall R.N. 08:01/09/17. BP: 114/72. HR: 84. O2 saturation: 97% on room air. Pain level now: 08/21. --08:27 Charlie Hall R.N. The patient has had no adverse reaction. ( pt continues to c/o 10/10 pain following medications. No s/sx of pain, requires multiple questions to arouse her from sleep.). --08:27 Charlie Hall R.N. 10:01/09/2017 IV Fluids IV NS Discontinued: bag #1 infused upon discharge. Total amount infused: 1000 mL. IV patency established. IV site checked: no pain, redness, or swelling. IV flushed thoroughly. --10:31 Charlie Hall R.N. DISPOSITION / DISCHARGE 10:01/09/2017 Site #1 removed upon discharge. Catheter intact (Pt refused dressing with IV removed, instructed to hold pressure and given gauze.). --10:31 Charlie Hall R.N. 10:29 01/09/17. Departure time: 1029. Condition at departure: improved and stable. No learning barriers present. Reviewed medication(s) side effects, precautions, dosing and course information. Prescription(s) given to the patient. Patient and spouse verbalized understanding. Written instructions provided in [place]i. The patient was discharged by the physician. She was discharged home and accompanied by spouse. She left the Emergency Department ambulatory and via private vehicle. Spouse driving. --10:31 Charlie Hall R.N. 10:29 01/09/17. BP: 107/64. HR: 84. RR: 14. O2 saturation: 95% on room air. Temp: 98.2 F (oral). Pain level now 5/10. --10:31 Charlie Hall R.N. Locked/Released at 01/09/2017 10:33 by Charlie Hall R.N.
--- NOTE | 2017-01-09 10:03 | ED ORDER SUMMARY ---
..... Patient: ELIZABETH MCKEON OrderSheet [facility] VisitID: [id number] [address] [place] [address] 41y, F Registration Date/Time: 01/09/2017 ORDER SHEET Weight: 58.0 kg (stated) Allergies: Codeine GENERAL ORDERS: CBC w Diff Urgent (07:16 01/09/2017 Kristi Ly) (Ack 7:17 LMuller) (8:15 KWilliams R.N.) CMP Urgent (07:01/09/2017 Kristi Ly) (Ack 7:17 LMuller) (8:15 KWilliams R.N.) Sed Rate Urgent (07:01/09/2017 Kristi Ly) (Ack 7:17 LMuller) (8:15 KWilliams R.N.) CRP Urgent (07:01/09/2017 Kristi Ly) (Ack 7:17 LMuller) (8:15 KWilliams R.N.) Pulse oximeter (07:01/09/2017 Kristi Ly) (8:15 KWilliams R.N.) CT Sinus/Facial Bones w Cont Urgent (07:01/09/2017 Kristi Ly) (Ack 7:22 LMuller) (8:50 KHoerner) MEDICATION ORDERS: Phenergan IV 25 mg (HIGH ALERT MEDICATION, NOW) (07:01/09/2017 Kristi Ly) (8:20 KWilliams R.N.) IV FLUIDS: IV NS : initial bolus 1000 mL (1000 mL/hr), then none - for X1 (NOW) (07:01/09/2017 Kristi Ly) (8:16 KWilliams R.N.) Toradol IV 30 mg (NOW) (07:01/09/2017 Kristi Ly) (8:19 KWilliams R.N.) Benadryl IV 25 mg (NOW) (07:01/09/2017 Kristi Ly) (8:17 KWilliams R.N.) Decadron IV 10 mg (NOW) (07:01/09/2017 Kristi Ly) (8:23 Tracey Lorenzana) ORDER SHEET NOTES: [Electronically signed by Peter Freeman Dr. (10:06 01/09/2017)] [Electronically signed by Charlie Hall R.N. (10:33 01/09/2017)] [Electronically locked/signed by Charlie Hall R.N. (10:33 01/09/2017)]
--- NOTE | 2017-01-09 10:03 | ED CLINICAL REPORT ---
Clinical Report - Physicians/Mid Levels [facility] [address] [place] [address] 01/09/2017 6:33 Patient: ELIZABETH MCKEON Arrived- By private vehicle. Historian- patient. HISTORY OF PRESENT ILLNESS Chief Complaint: HEADACHE and FACIAL PAIN. Is still present and worsening. This started about week. It was abrupt in onset and has been constant but is not gone now. Patient was last known well (a week ago). Onset during does not recall. It is described as sharp. Located in the region of the left eye, left temporal and left maxillary region and facial region. No neck pain. At its maximum, severity described as severe. When seen in the E.D., severity described as severe. Modifying factors: worsened by bright light, noise, touching face, moving head and general movement; relieved by nothing. The patient has had blurred vision, photophobia and nausea. No preceding symptoms, numbness, weakness or vomiting. No recent travel. Similar symptoms previously: None. Recent medical care: The patient was seen recently in the emergency department and a clinic (reports being diagnosed with a "nerve infection" and "nerve pain." reports the gabapentin has helped but not the narcotics.). REVIEW OF SYSTEMS No fever, sinus pressure, ear pain, sore throat or chest pain. No difficulty breathing, cough, abdominal pain or skin rash. All systems otherwise negative, except as recorded above. PAST HISTORY See nurses notes. SOCIAL HISTORY Smoker- current status unknown. No alcohol use or drug use. No recent travel. Is a local resident. FAMILY HISTORY (no family hx of migraines or autoimmune disease). ADDITIONAL NOTES The nursing notes have been reviewed. PHYSICAL EXAM Vital Signs: 01/09/2017 06:38 BP: 115/79. HR: 94. RR: 18. O2 saturation: 99%. Temp: 98.0 F. Blood pressure normal. Oxygen saturation normal. Appearance: Alert. No acute distress. Eyes: Pupils equal, round and reactive to light. Eyes normal inspection. (no papilledema. eye is not steamy. PERRLA. EMOI without pain. no consentual photophobia). (no rash. no tenderness over the temporal artery.). ENT: Ears normal. Nose normal. Pharynx normal. Poor dentition, multiple missing teeth. extensive dental decay. Neck: Normal inspection. Neck supple. CVS: Normal heart rate and rhythm. Heart sounds normal. Pulses normal. Respiratory: No respiratory distress. Breath sounds normal. Abdomen: Soft and nontender. No organomegaly. Skin: Skin warm and dry. Normal skin color. No rash. Normal skin turgor. Extremities: Extremities exhibit normal ROM. No lower extremity edema. Neuro: Oriented X 3. Alert. Mood/affect normal. Speech normal. Cranial nerves normal (as tested). No cerebellar findings. No motor deficit. No sensory deficit. Reflexes normal. LABS, X-RAYS, AND EKG CT Face: 1. No acute changes 2. Chronic periodontal disease. Facial CT performed with contrast. The study was interpreted by the radiologist and discussed with the radiologist. Interpretation time: 09:54. Laboratory Tests: CBC w Diff: (CAROLANN: 01/09/2017 08:08) ( MsgRcvd 01/09/2017 08:36) Final results Test Result Flag Units (Reference) WHITE BLOOD COUNT 9.2 K/uL (4.5-11.5) RED BLOOD COUNT 3.99 L M/uL (4.00-5.20) HEMOGLOBIN 13.4 gm/dL (12.0-16.0) HEMATOCRIT 39.3 % (36.0-46.0) MEAN CELL VOLUME 98 fL (80-100) MEAN CORPUSCULAR HGB 34 pg (26-34) MEAN CORPUSCULAR HGB CONC 34 g/dL (31-37) RED CELL DISTRIBUTION WIDTH 12.7 % (11.6-14.8) PLATELET COUNT 271 K/uL (150-400) NEUTROPHIL % 54.6 % (50-75) LYMPH % 36.1 % (25-40) MONO % 6.0 % (3-14) EOSINOPHIL % 2.9 % (0-4) BASOPHIL % 0.4 % (0-2) SED RATE WESTERGREN 20 mm/hr (0-20) CMP: (CAROLANN: 01/09/2017 08:08) ( MsgRcvd 01/09/2017 08:30) Final results Test Result Flag Units (Reference) GLUCOSE 122 H mg/dL (70-110) BUN 13 mg/dL (7-18) CREATININE 0.7 mg/dL (0.6-1.3) Estimated GFR >60 mL/min Estimated GFR- >60 mL/min Note: Persistent reduction over 3 months in eGFR<60 mL/min/1.73 m2 defines CKD. Patients with eGFR values>=60 mL/min/1.73 m2 may also have CKD if evidence ofpersistent proteinuria. Additional information may be foundat www.[email or web address].org. SODIUM 140 mmol/L (136-145) POTASSIUM 3.5 mmol/L (3.5-5.1) CHLORIDE 101 mmol/L (98-107) CARBON DIOXIDE 31 mmol/L (21-32) CALCIUM 8.6 mg/dL (8.5-10.1) TOTAL PROTEIN 6.9 g/dL (6.4-8.2) ALBUMIN 3.2 L g/dL (3.3-5.0) BILIRUBIN, TOTAL 0.2 mg/dL (0.0-1.0) ALKALINE PHOSPHATASE 59 U/L (46-116) AST (SGOT) 10 L U/L (15-37) ALT (SGPT) 19 U/L (12-78) C-REACTIVE PROTEIN 1.3 H mg/dL (0.0-0.9) . PROGRESS AND PROCEDURES Course of Care: patient is a 41 yo female presenting for left sided facial pain. PROCEDURE: CT HEAD WITHOUT CONTRAST INDICATION: HEADACHE TECHNIQUE: Axial CT images were acquired through the head. Coronal and sagittal reformations were created. COMPARISON: Multiple prior studies including the most recent from 01/21/2016. FINDINGS: No intracranial hemorrhage or extraaxial fluid collections. Ventricles are normal in size, shape and position. There is no mass, mass effect or midline shift. The mathur-white matter differentiation is normal. There is no edema. The calvarium is intact. The paranasal sinuses and mastoid air cells are normally aerated. The extracranial soft tissues and orbits are normal. IMPRESSION: 1. No CT evidence of acute intracranial process. 01/09/2017 08:21 BP: 114/72. HR: 84. O2 saturation: 97%. Pain level now: 10/10. Vital Signs: have been reviewed as normal. Disposition: Discharged home in good and improved condition. Condition: good. CLINICAL IMPRESSION Dental caries (extensive decay) INSTRUCTIONS Your Current Medications: CONTINUE TAKING THE FOLLOWING MEDICATIONS: Gabapentin Oral. None*. Oxycodone-Acetaminophen Oral. Prescription Medications: Diclofenac 50 mg tablets: take 1 tablet orally every 6 hours as needed for pain or stiffness. Dispense thirty (30). No refill. Follow-up: Screening today revealed the patient's blood pressure to be in the normal range. Follow-up with: [facility], , , , , , Follow up in about two days. Call for an appointment. (Electronically signed by Peter Freeman Dr. 01/09/2017 10:06)
--- NOTE | 2017-01-09 10:03 | ED ORDER SUMMARY ---
..... Patient: ELIZABETH MCKEON OrderSheet [facility] VisitID: [id number] [address] [place] [address] 41y, F Registration Date/Time: 01/09/2017 ORDER SHEET Weight: 58.0 kg (stated) Allergies: Codeine GENERAL ORDERS: CBC w Diff Urgent (07:16 01/09/2017 Kristi Ly) (Ack 7:17 LMuller) (8:15 KWilliams R.N.) CMP Urgent (07:01/09/2017 Kristi Ly) (Ack 7:17 LMuller) (8:15 KWilliams R.N.) Sed Rate Urgent (07:01/09/2017 Kristi Ly) (Ack 7:17 LMuller) (8:15 KWilliams R.N.) CRP Urgent (07:01/09/2017 Kristi Ly) (Ack 7:17 LMuller) (8:15 KWilliams R.N.) Pulse oximeter (07:01/09/2017 Kristi Ly) (8:15 KWilliams R.N.) CT Sinus/Facial Bones w Cont Urgent (07:01/09/2017 Kristi Ly) (Ack 7:22 LMuller) (8:50 KHoerner) MEDICATION ORDERS: Phenergan IV 25 mg (HIGH ALERT MEDICATION, NOW) (07:01/09/2017 Kristi Ly) (8:20 KWilliams R.N.) IV FLUIDS: IV NS : initial bolus 1000 mL (1000 mL/hr), then none - for X1 (NOW) (07:01/09/2017 Kristi Ly) (8:16 KWilliams R.N.) Toradol IV 30 mg (NOW) (07:01/09/2017 Kristi Ly) (8:19 KWilliams R.N.) Benadryl IV 25 mg (NOW) (07:01/09/2017 Kristi Ly) (8:17 KWilliams R.N.) Decadron IV 10 mg (NOW) (07:01/09/2017 Kristi Ly) (8:23 Tracey Lorenzana) ORDER SHEET NOTES: [Electronically signed by Peter Freeman Dr. (10:06 01/09/2017)] [Electronically signed by Charlie Hall R.N. (10:33 01/09/2017)] [Electronically locked/signed by Charlie Hall R.N. (10:33 01/09/2017)]
--- NOTE | 2017-01-09 10:34 | ED MAR SUMMARY ---
..... Medication Administration Record [facility] [address] [address] Patient: ELIZABETH MCKEON Visit ID: [id number] 41y, F Weight: 58.0 kg Height/Length: 61 in BMI: 24.2 ALLERGIES: Codeine Start 08:16 01/09/2017 Charlie Hall R.N., Stop 10:26 01/09/2017 Charlie Hall R.N. Medication Administered: IV NS (SALINE), Dose: IV Fluids over 1 hour(s), Rate: 999 mL/hr, Dispensed: 1000 mL bag, Site: #1 right AC. Medication Ordered: IV NS : initial bolus 1000 mL (1000 mL/hr), then none - for X1 (NOW). Given 08:01/09/2017 Charlie Hall R.N. Medication Administered: BENADRYL [IVP] (DIPHENHYDRAMINE HCL), Dose: 25 mg IVP over 1.5 minute(s), Site: #1 right AC. Medication Ordered: Benadryl IV 25 mg (NOW). Given 08:01/09/2017 Charlie Hall R.N. Medication Administered: TORADOL [IVP], Dose: 30 mg IVP over 2 minute(s), Site: #1 right AC. Medication Ordered: Toradol IV 30 mg (NOW). Given 08:01/09/2017 Charlie Hall R.N. Medication Administered: PHENERGAN [IVP] (PROMETHAZINE HCL), Dose: 25 mg IVP over 2 minute(s), Site: #1 right AC. Medication Ordered: Phenergan IV 25 mg (HIGH ALERT MEDICATION, NOW). Given 08:01/09/2017 Charlie Hall R.N. Medication Administered: DECADRON [IVP], Dose: 10 mg IVP over 2 minute(s), Site: #1 right AC. Medication Ordered: Decadron IV 10 mg (NOW).
--- NOTE | 2017-01-09 10:34 | ED DISCHARGE INSTRUCTIONS ---
Patient: ELIZABETH MCKEON General Instructions [facility] VisitID: [id number] [place] [address] 41y, F Registration Date/Time: 01/09/2017 Dental caries (extensive decay) INSTRUCTIONS Your Current Medications: CONTINUE TAKING THE FOLLOWING MEDICATIONS: Gabapentin Oral. None*. Oxycodone-Acetaminophen Oral. Prescription Medications: Diclofenac 50 mg tablets: take 1 tablet orally every 6 hours as needed for pain or stiffness. Dispense thirty (30). No refill. Follow-up: Screening today revealed the patient's blood pressure to be in the normal range. Follow-up with: [facility], , , , , , Follow up in about two days. Call for an appointment. ADDITIONAL INFORMATION Dental Cavity A dental cavity is a pit or crater in the enamel surface of the tooth. This exposes the sensitive inner layer of the tooth and causes pain. If untreated, the cavity will get bigger and may cause an infection or abscess in the root of the tooth. An infection in the tooth is a much more serious problem and may require a root canal or removal of the entire tooth. The tooth pain may be made worse by drinking hot or cold fluids. It may spread from the tooth to the ear or jaw on the same side. Home Care: Avoid hot and cold foods, and liquids since your tooth may be sensitive to temperature changes. If your tooth is chipped or cracked, or if there is a large open cavity, apply OIL OF CLOVES (available xxmm-hja-llsubdk in drug stores) directly to the tooth to reduce pain. Some pharmacies carry an duyh-iad-nznsgmf "toothache kit." This contains oil of cloves and a paste, which can be applied over the exposed tooth to decrease sensitivity. An ice pack on your jaw over the sore area may help to reduce pain. You may use acetaminophen (Tylenol) or ibuprofen (Motrin, Advil) to control pain, unless another pain medicine was prescribed. [ NOTE: If you have liver disease or ever had a stomach ulcer, talk with your doctor before using these medicines.] If you have signs of an infection, an antibiotic will be given. Take it as directed. Follow-Up with your dentist as directed. Although your pain may go away with the treatment given, only a dentist can fully evaluate and treat this problem to prevent further tooth damage. Get Prompt Medical Attention if any of the following occur: Redness or swelling of the face Pain worsens or spreads to the neck Fever over 100.5 F (38C) Unusual drowsiness; headache or stiff neck; weakness or fainting Pus drains from the tooth or gum Difficulty swallowing or breathing Dental Pain A crack or cavity in the tooth, which exposes the sensitive inner area of the tooth can cause tooth pain. An infection in the gum or the root of the tooth can cause pain and swelling. The pain is often made worse by drinking hot or cold fluids, or biting on hard foods. Pain may spread from the tooth to the ear or jaw on the same side. Home Care: Avoid hot and cold foods and liquids since your tooth may be sensitive to temperature changes. If your tooth is chipped or cracked, or if there is a large open cavity, apply OIL OF CLOVES (available ebrm-xwz-xowlyfw in drug stores) directly to the tooth to reduce pain. Some pharmacies carry an emfw-hov-zdmflgz "toothache kit." This contains a paste, which can be applied over the exposed tooth to decrease sensitivity. A cold pack on your jaw over the sore area may help reduce pain. You may use acetaminophen (Tylenol) or ibuprofen (Motrin, Advil) to control pain, unless another medicine was prescribed. [ NOTE: If you have chronic liver or kidney disease or ever had a stomach ulcer or GI bleeding, talk with your doctor before using these medicines.] If you have signs of an infection, an antibiotic will be given. Take it as directed. Follow-Up as directed with a dentist. Your pain may go away with the treatment given. However, only a dentist can fully evaluate and treat the cause and prevent the pain from coming back again. TOOTHACHE IS A SIGN OF DISEASE IN YOUR TOOTH AND SHOULD BE EXAMINED AND TREATED BY A DENTIST. Get Prompt Medical Attention if any of the following occur: Your face becomes swollen or red Pain worsens or spreads to the neck Fever over 100.4 F (38.0 C) Unusual drowsiness; headache or stiff neck; weakness or fainting Pus drains from the tooth Difficulty swallowing or breathing You have been given the following additional information: Dental Cavity Dental Pain (Electronically signed by Peter Freeman Dr. 01/09/2017 10:06)
--- NOTE | 2017-01-09 10:34 | ED MAR SUMMARY ---
..... Medication Administration Record [facility] [address] [place] [address] Patient: ELIZABETH MCKEON Visit ID: [id number] 41y, F Weight: 58.0 kg Height/Length: 61 in BMI: 24.2 ALLERGIES: Codeine Start 08:16 01/09/2017 Charlie Hall R.N., Stop 10:26 01/09/2017 Charlie Hall R.N. Medication Administered: IV NS (SALINE), Dose: IV Fluids over 1 hour(s), Rate: 999 mL/hr, Dispensed: 1000 mL bag, Site: #1 right AC. Medication Ordered: IV NS : initial bolus 1000 mL (1000 mL/hr), then none - for X1 (NOW). Given 08:01/09/2017 Charlie Hall R.N. Medication Administered: BENADRYL [IVP] (DIPHENHYDRAMINE HCL), Dose: 25 mg IVP over 1.5 minute(s), Site: #1 right AC. Medication Ordered: Benadryl IV 25 mg (NOW). Given 08:01/09/2017 Charlie Hall R.N. Medication Administered: TORADOL [IVP], Dose: 30 mg IVP over 2 minute(s), Site: #1 right AC. Medication Ordered: Toradol IV 30 mg (NOW). Given 08:01/09/2017 Charlie Hall R.N. Medication Administered: PHENERGAN [IVP] (PROMETHAZINE HCL), Dose: 25 mg IVP over 2 minute(s), Site: #1 right AC. Medication Ordered: Phenergan IV 25 mg (HIGH ALERT MEDICATION, NOW). Given 08:01/09/2017 Charlie Hall R.N. Medication Administered: DECADRON [IVP], Dose: 10 mg IVP over 2 minute(s), Site: #1 right AC. Medication Ordered: Decadron IV 10 mg (NOW).
--- NOTE | 2017-01-09 10:34 | ED DISCHARGE INSTRUCTIONS ---
Patient: ELIZABETH MCKEON General Instructions [facility] VisitID: [id number] [place] [address] 41y, F Registration Date/Time: 01/09/2017 Dental caries (extensive decay) INSTRUCTIONS Your Current Medications: CONTINUE TAKING THE FOLLOWING MEDICATIONS: Gabapentin Oral. None*. Oxycodone-Acetaminophen Oral. Prescription Medications: Diclofenac 50 mg tablets: take 1 tablet orally every 6 hours as needed for pain or stiffness. Dispense thirty (30). No refill. Follow-up: Screening today revealed the patient's blood pressure to be in the normal range. Follow-up with: [facility], , , , , , Follow up in about two days. Call for an appointment. ADDITIONAL INFORMATION Dental Cavity A dental cavity is a pit or crater in the enamel surface of the tooth. This exposes the sensitive inner layer of the tooth and causes pain. If untreated, the cavity will get bigger and may cause an infection or abscess in the root of the tooth. An infection in the tooth is a much more serious problem and may require a root canal or removal of the entire tooth. The tooth pain may be made worse by drinking hot or cold fluids. It may spread from the tooth to the ear or jaw on the same side. Home Care: Avoid hot and cold foods, and liquids since your tooth may be sensitive to temperature changes. If your tooth is chipped or cracked, or if there is a large open cavity, apply OIL OF CLOVES (available vchq-elp-ivwzmyt in drug stores) directly to the tooth to reduce pain. Some pharmacies carry an bobe-dyh-dcbhoec "toothache kit." This contains oil of cloves and a paste, which can be applied over the exposed tooth to decrease sensitivity. An ice pack on your jaw over the sore area may help to reduce pain. You may use acetaminophen (Tylenol) or ibuprofen (Motrin, Advil) to control pain, unless another pain medicine was prescribed. [ NOTE: If you have liver disease or ever had a stomach ulcer, talk with your doctor before using these medicines.] If you have signs of an infection, an antibiotic will be given. Take it as directed. Follow-Up with your dentist as directed. Although your pain may go away with the treatment given, only a dentist can fully evaluate and treat this problem to prevent further tooth damage. Get Prompt Medical Attention if any of the following occur: Redness or swelling of the face Pain worsens or spreads to the neck Fever over 100.5 F (38C) Unusual drowsiness; headache or stiff neck; weakness or fainting Pus drains from the tooth or gum Difficulty swallowing or breathing Dental Pain A crack or cavity in the tooth, which exposes the sensitive inner area of the tooth can cause tooth pain. An infection in the gum or the root of the tooth can cause pain and swelling. The pain is often made worse by drinking hot or cold fluids, or biting on hard foods. Pain may spread from the tooth to the ear or jaw on the same side. Home Care: Avoid hot and cold foods and liquids since your tooth may be sensitive to temperature changes. If your tooth is chipped or cracked, or if there is a large open cavity, apply OIL OF CLOVES (available elew-jpp-itwnvpy in drug stores) directly to the tooth to reduce pain. Some pharmacies carry an nlhl-ikd-cutgxve "toothache kit." This contains a paste, which can be applied over the exposed tooth to decrease sensitivity. A cold pack on your jaw over the sore area may help reduce pain. You may use acetaminophen (Tylenol) or ibuprofen (Motrin, Advil) to control pain, unless another medicine was prescribed. [ NOTE: If you have chronic liver or kidney disease or ever had a stomach ulcer or GI bleeding, talk with your doctor before using these medicines.] If you have signs of an infection, an antibiotic will be given. Take it as directed. Follow-Up as directed with a dentist. Your pain may go away with the treatment given. However, only a dentist can fully evaluate and treat the cause and prevent the pain from coming back again. TOOTHACHE IS A SIGN OF DISEASE IN YOUR TOOTH AND SHOULD BE EXAMINED AND TREATED BY A DENTIST. Get Prompt Medical Attention if any of the following occur: Your face becomes swollen or red Pain worsens or spreads to the neck Fever over 100.4 F (38.0 C) Unusual drowsiness; headache or stiff neck; weakness or fainting Pus drains from the tooth Difficulty swallowing or breathing You have been given the following additional information: Dental Cavity Dental Pain (Electronically signed by Peter Freeman Dr. 01/09/2017 10:06)
--- NOTE | 2017-01-09 10:35 | ED MED RECONCILIATION SUMMARY ---
Patient: ELIZABETH MCKEON Medication Reconciliation Report [facility] VisitID: [id number] [address] [place] [address] 41y, F Registration Date/Time: 01/09/2017 Weight: 58.0 kg Height/Length: 61 in. BMI: 24.2 ALLERGIES: Codeine The patient's Home Medications are listed below: CONTINUE TAKING THE FOLLOWING MEDICATIONS: Gabapentin Oral Oxycodone-Acetaminophen Oral The source(s) of the original Home Medication information: Not obtained. The following Medications were given to the patient in the Emergency Department: IV NS IV Fluids bolus 0, then 999 mL/hr, administered: 01/09/2017 8:16:00 AM Benadryl [IVP] IVP 25 mg, administered: 01/09/2017 8:16:00 AM Toradol [IVP] IVP 30 mg, administered: 01/09/2017 8:19:00 AM PHENERGAN [IVP] IVP 25 mg, administered: 01/09/2017 8:20:00 AM Decadron [IVP] IVP 10 mg, administered: 01/09/2017 8:23:00 AM The following Medications were prescribed to the patient: Diclofenac 50 mg tablets: take 1 tablet orally every 6 hours as needed for pain or stiffness. Dispense thirty (30). No refill. -- Peter Freeman Dr.
--- NOTE | 2017-01-09 10:35 | ED MED RECONCILIATION SUMMARY ---
Patient: ELIZABETH MCKEON Medication Reconciliation Report [facility] VisitID: [id number] [address] [place] [address] 41y, F Registration Date/Time: 01/09/2017 Weight: 58.0 kg Height/Length: 61 in. BMI: 24.2 ALLERGIES: Codeine The patient's Home Medications are listed below: CONTINUE TAKING THE FOLLOWING MEDICATIONS: Gabapentin Oral Oxycodone-Acetaminophen Oral The source(s) of the original Home Medication information: Not obtained. The following Medications were given to the patient in the Emergency Department: IV NS IV Fluids bolus 0, then 999 mL/hr, administered: 01/09/2017 8:16:00 AM Benadryl [IVP] IVP 25 mg, administered: 01/09/2017 8:16:00 AM Toradol [IVP] IVP 30 mg, administered: 01/09/2017 8:19:00 AM PHENERGAN [IVP] IVP 25 mg, administered: 01/09/2017 8:20:00 AM Decadron [IVP] IVP 10 mg, administered: 01/09/2017 8:23:00 AM The following Medications were prescribed to the patient: Diclofenac 50 mg tablets: take 1 tablet orally every 6 hours as needed for pain or stiffness. Dispense thirty (30). No refill. -- Peter Freeman Dr.
== END 2017-01-09 10:29 | disposition home or self-care (01) ==
LOC: ED SRH 06:32
DX: K02.9 Dental caries, unspecified (principal); R51 Headache; F17.210 Nicotine dependence, cigarettes, uncomplicated; Z88.5 Allergy status to narcotic agent
CPT/HCPCS: 90100; 91585; 95059; 95150